=== PATIENT | female | born 1965 | race Caucasian/White ===

== ENCOUNTER 2022-06-20 11:13 | Emergency (ER) | payer BC ==
[2022-06-20] MEDS ORDERED: LORazepam 0.5 MG Tab PO ONE (11:14)
[2022-06-20] MEDS ORDERED: LORazepam 0.5 MG Tab ONE (12:28)
== END 2022-06-20 12:31 | disposition home or self-care (01) ==
LOC: DL.ED 11:13
DX: I10 Essential (primary) hypertension (principal); F43.9 Reaction to severe stress, unspecified; E10.9 Type 1 diabetes mellitus without complications; Z88.1 Allergy status to other antibiotic agents; Z79.899 Other long term (current) drug therapy; Z86.16 Personal history of COVID-19
CPT/HCPCS: 99283; A9270

== ENCOUNTER 2023-05-20 09:34 | Emergency (ER) | payer BC ==
[2023-05-20 10:20] LABS: BASOPHILS PERCENT AUTO 0.5 % (0.0-1.0); EOSINOPHILS PERCENT AUTO 1.5 % (1.0-3.0); HEMATOCRIT 49.4 % (37.0-47.0); LYMPHOCYTES PERCENT AUTO 27.9 % (20.5-50.1); MEAN CORPUSCULAR HEMOGLOBIN 33.9 pg (27.0-34.0); MEAN CORPUSCULAR HGB CONC 34.4 g/dL (33.0-35.0); MEAN CORPUSCULAR VOLUME 98.4 fL (80-100); MONOCYTES PERCENT AUTO 7.6 % (2-8); NEUTROPHILS PERCENT AUTO 62.5 % (42.2-75.2); PLATELET COUNT,PLT 300 10^3/uL (150-450); RED BLOOD CELL COUNT 5.02 10^6/uL (4.2-5.4); WHITE BLOOD CELL COUNT,WBC 9.3 10^3/uL (5.0-10.0)
[2023-05-20 10:34] LABS: ALBUMIN 4.3 g/dL (3.4-5.0); ANION GAP 12.9 mEq/L (7-13); BILIRUBIN TOTAL 0.5 mg/dL (0.2-1.0); BUN/CREATININE RATIO 15.7 (No establ ref range); CALCIUM 9.5 mg/dL (8.5-10.1); CREATININE 0.89 mg/dL (0.55-1.02); EST CRCL DRUG DOSING (CG) 58.77 mL/min; POTASSIUM,K 3.9 mmol/L (3.5-5.1); PROTEIN TOTAL,TP 8.8 g/dL (6.4-8.2)
[2023-05-20] MEDS: Aspirin 81 MG Tab.Chew PO ONE (10:38)
[2023-05-20] MEDS: Metoprolol Tartrate 5 MG/5 ML SDV IVPUSH ONE (10:38)
[2023-05-20] MEDS: Sodium Chloride 0.9% 10 ML Syringe FLUSH PRN (11:09)
== END 2023-05-20 12:55 | disposition home or self-care (01) ==
LOC: DL.ED 09:34
DX: R07.89 Other chest pain (principal); I10 Essential (primary) hypertension; E78.00 Pure hypercholesterolemia, unspecified; E10.9 Type 1 diabetes mellitus without complications; Z86.16 Personal history of COVID-19; Z79.899 Other long term (current) drug therapy; Z88.1 Allergy status to other antibiotic agents; Z88.8 Allergy status to other drugs, medicaments and biological substances
CPT/HCPCS: 36415; 71045; 80053; 84484; 85025; 85379; 93005; 96374; 99285; A9270; J3490